=== PATIENT | female | born 1985 | race Caucasian/White ===

== ENCOUNTER 2025-08-24 08:34 | Day surgery (SDC) | payer BC ==
[2025-08-23 10:06] VITALS: BMI 31.1
[~2025-08-24 08:34] MED LIST: EPINEPHrine 0.3 MG in Ophthalmic Irrigation Solution 500 ML IRR SCH
[2025-08-24] MEDS ORDERED: Cyclopentolate 1% Opth Drop 2 ML BOT ONE (10:24)
[2025-08-24] MEDS ORDERED: PROPOFOL 20 ML ONE ×2 (10:57→11:49)
[2025-08-24] MEDS ORDERED: Lidocaine 2% 6 ML (Jelly) SYR ONE (10:57)
[2025-08-24] MEDS ORDERED: Maxitrol 0.1% Opth Oint 3.5 GM TUBE ONE (11:41)
[2025-08-24] MEDS ORDERED: CEFAZOLIN 1 GM VIAL ONE (11:41)
[2025-08-24] MEDS ORDERED: Lidocaine 4% PF 5 ML AMP ONE (11:41)
[2025-08-24] MEDS ORDERED: Lidocaine 1% PF 5 ML VIAL ONE (11:41)
[2025-08-24] MEDS ORDERED: Ondansetron PF 4 MG/2 ML Vial ONE (11:52)
== END 2025-08-24 13:01 | disposition home or self-care (01) ==
LOC: SDC 08:34
PROVIDERS: ATTEND Ophthalmology Retina Specialist
PROC: 08B43ZZ Excision of Right Vitreous, Percutaneous Approach (ICD-10-PCS; principal; 2025-08-24)
DX: H33.011 Retinal detachment with single break, right eye (principal); Z98.49 Cataract extraction status, unspecified eye; Z96.1 Presence of intraocular lens
CPT/HCPCS: 67025; J0166; J0690; J2250; J2405; J2704; J3010; J3301; J3490